=== PATIENT | female | born 1985 ===

== ENCOUNTER 2024-10-29 10:39 | Outpatient (CLI) | payer BC, SELFPAY ==
[2024-10-29 10:57] LABS: Hemoglobin 14.3 g/dL (12.0-15.0); Mean Corpuscular HGB Conc 33.3 g/dl (32-36); Mean Corpuscular Hemoglobin 29.9 pg (26-34); Mean Platelet Volume 8.6 fl (7.4-10.4); Platelet Count Result 308 k/mm3 (150-375); Red Blood Count 4.78 M/mm3 (4.2-5.4); Red Cell Distribution Width 12.1 % (11.5-14.5); White Blood Count 4.8 K/mm3 (4.5-10.0)
[2024-10-29 11:09] LABS: Alanine Aminotransferase 34 U/L (6-35); Albumin Level 4.5 g/dL (3.5-5.1); Alkaline Phosphatase 42 U/L (38-126); Anion Gap 7 mmol/L (4-12); Aspartate Amino Transferase 28 U/L (14-36); Bilirubin,Total 0.8 mg/dL (0.2-1.3); Blood Urea Nitrogen 13 mg/dL (7-17); Carbon Dioxide 28 mmol/L (22-30); Chloride 102 mmol/L (98-107); Cholesterol 277 mg/dL (0-200); Estimated Glomerular Filt Rate > 60; Glucose 99 mg/dL (65-110); HDL Direct 88 mg/dL; Potassium 4.5 mmol/L (3.4-5.0); Sodium 137 mmol/L (137-145); Triglycerides 87 mg/dL (<150)
--- OUTSIDE RECORDS SUMMARY | 2024-10-29 11:16 | XMS_ITS | Encounter Summary ---
Author Organization [facility] Address [address] [place] [address] Phone Care Team Providers Care Teradata Developer Name Role Phone Cherelle Redding APRN, REMOTE OPERATIONS PRODUCER Unavailable [phone] Vera Good APRN, REMOTE OPERATIONS PRODUCER Primary Care Provider Elvis Chappell DPM Unavailable Britt Thomas MD Unavailable [phone] Reason for Visit * Reason Comments Medication Refill Encounter Details Date Type Department Care Team (Late st Contact Info) Description 06/04/2020 Refill [facility] [address] [place] [address] Vera Good APRN, REMOTE OPERATIONS PRODUCER [address] [place] [address] Medication Refill Social History Tobacco Use Types Packs/Day Years Used Date Smoking Tobacco: Former Smokeless Tobacco: Never Comments:no vaping or e-ciga rettes Alcohol Use Standard Drinks/Week Comments Yes 2 (1 standard drink = 0.6 oz pur e alcohol) AUDIT-C Answer Date Recorded Frequency of Alcohol Consumption 2-3 times a wee k 01/01/2019 Average Number of Drinks 1 or 2 019 Frequency of Binge Drinking Less than monthly PHQ-2 Answer Date Recorded PHQ-2 Score 11 10/19/2019 Sexually Active Control Partners Comments Yes I.U.D. Male Comments No Sex and Gender Information Value Date Recorded Sex Assigned at Not on file Legal Sex Female 8:32 PM PREDATOR CONTROL TRAPPER Gender Identity Not on file Sexual Orientation Not on file documented as of this encounter Miscellaneous Notes * Telephone Encounter - Bety Kelly - 06/05/2020 11:37 AM CDT Pt no longer taking this medication documented in this encounter Plan of Treatment Not on file documented as of this encounter Visit Diagnoses Diagnosis Anxiety Anxiety state, unspecified Depression, unspecified depression type documented in this encounter Additional Health Concerns Infection Onset Date Last Indicated Resolved Time COVID - 19 07/29/2020 07/29/2020 08/18/2020 12:1 8 AM PREDATOR CONTROL TRAPPER COVID - 19 10/04/2020 10/04/2020 10/24/2020 12:1 8 AM PREDATOR CONTROL TRAPPER COVID - 19 07/13/2021 07/13/2021 08/02/2021 12:1 6 AM PREDATOR CONTROL TRAPPER COVID - 19 Confirmed 07/13/2021 07/13/2021 021 12:16 AM PREDATOR CONTROL TRAPPER COVID - 19 09/25/2022 09/25/2022 10/05/2022 12:1 6 AM PREDATOR CONTROL TRAPPER Assessment Noted Time PHQ-9 Depression Total Score: 11 020 2:14 PM PREDATOR CONTROL TRAPPER documented as of this encounter Care Teams Teradata Developer Relationship Specialty Start Date End Date Vera Good APRN, REMOTE OPERATIONS PRODUCER [address], [place] [address] PCP - General Certified Nurse Practitioner 11/15/19 Cherelle Redding APRN, REMOTE OPERATIONS PRODUCER Nurse Practitioner Obstetrics & Gynecology 10/25/19 Elvis Chappell DPM [address] [place] [address] Consulting Physician Podiatry 10/19/21 Britt Thomas MD [address] [place] [address] Consulting Physician Psychiatry 01/08/23 documented as of this encounter
--- OUTSIDE RECORDS SUMMARY | 2024-10-29 11:16 | XMS_ITS | Encounter Summary ---
Author Organization [facility] Address [address] [place] [address] Phone Care Team Providers Care Arts Education Teacher Name Role Phone Cherelle Redding APRN, VOCATIONAL INSTRUCTOR Unavailable [phone] Vera Good APRN, VOCATIONAL INSTRUCTOR Primary Care Provider Elvis Chappell DPM Unavailable Britt Thomas MD Unavailable [phone] Reason for Visit * Reason Comments Medication Refill Encounter Details Date Type Department Care Team (Late st Contact Info) Description 07/03/2020 Refill [facility] [address] [place] [address] Vera Good APRN, VOCATIONAL INSTRUCTOR [address] [place] [address] Medication Refill Social History Tobacco [...] on file Legal Sex Female 8:32 PM MANAGED SERVICES CONSULTANT Gender Identity Not on file Sexual Orientation Not on file documented as of this encounter Miscellaneous Notes * Telephone Encounter - Bety Kelly - 07/03/2020 2:23 PM CDT Requested Prescriptions Pending Prescriptions Disp Refills ??? Desvenlafaxine Succinate 50 MG TABLET SR 24 HR [Pharmacy Med Name: Desvenlafaxine Succinate ER Oral Tablet Extended Release 24 Hour 50 MG] 30 Tab 0 Sig: TAKE 1 TABLET BY MOUTH ONE TIME A DAY Unique:05/03/20 Last filled:05/03/20 Nov: 08/07/20 No results found for: SODIUM, POTASSIUM, CHLORIDE, CO2VEN, ANIONGAP, GLUCOSE, BUN, CREATININE, BCRATIO8, TOTALPROTEIN, ALBUMIN, AGRATIO, CALCIUM, TBIL, SGOTAST, SGPTALT, ALKALINEPHO, GFRNA, GFRA documented in this encounter Plan of Treatment Not on file documented as of this encounter Visit Diagnoses Diagnosis Anxiety Anxiety state, unspecified Depression, unspecified depression type documented in this encounter Additional Health Concerns Infection Onset Date Last Indicated Resolved Time COVID - 19 07/29/2020 07/29/2020 08/18/2020 12:1 8 AM MANAGED SERVICES CONSULTANT COVID - 19 10/04/2020 10/04/2020 10/24/2020 12:1 8 AM MANAGED SERVICES CONSULTANT COVID - 19 07/13/2021 07/13/2021 08/02/2021 12:1 6 AM MANAGED SERVICES CONSULTANT COVID - 19 Confirmed 07/13/2021 07/13/2021 021 12:16 AM MANAGED SERVICES CONSULTANT COVID - 19 09/25/2022 09/25/2022 10/05/2022 12:1 6 AM MANAGED SERVICES CONSULTANT Assessment Noted Time PHQ-9 Depression Total Score: 11 020 2:14 PM MANAGED SERVICES CONSULTANT documented as of this encounter Care Teams Arts Education Teacher Relationship Specialty Start Date End Date Vera Good, MAILS SUPERVISOR, VOCATIONAL INSTRUCTOR [address] [place] [address] PCP - General Certified Nurse Practitioner 11/15/19 Cherelle Redding APRN, VOCATIONAL INSTRUCTOR Nurse Practitioner Obstetrics & Gynecology 10/25/19 Elvis Chappell DPM [address] [place] [address] Consulting Physician Podiatry 10/19/21 Britt Thomas MD [address] [place] [address] Consulting Physician Psychiatry 01/08/23 documented as of this encounter
--- OUTSIDE RECORDS SUMMARY | 2024-10-29 11:16 | XMS_ITS | Clinical Summary ---
Author Organization [facility] Address [address] [place] [address] Phone Care Team Providers Care House Painting Instructor Name Role Phone Cherelle Redding APRN, GUM REMOVER Unavailable [phone] Vera Good APRN, GUM REMOVER Primary Care Provider Elvis Chappell DPGavino Unavailable Britt Thomas MD Unavailable [phone] Allergies Active Allergy Reactions Criticality Noted Date Comments Amoxicillin Unknown Low 10/14/2018 Reports medication does not work Medications spironolactone (ALDACTONE) 50 MG TabletIndication s:Water retention TAKE 1 TABLET BY MOUTH EVERY DAY 90 Tablet 2 Active Additional Information Patient not taking.Reported on 04/01/2024 ibuprofen (MOTRIN) 800 MG TabletIndication s:Acute non-recurrent sinusitis, unspecified location Take 1 Tablet by mouth every 8 hours as needed for Moderate or more severe pain. 60 Tablet 3 2 Active fluticasone (FLONASE) 50 MCG/ACT SuspensionIndica tions:Fluid level behind tympanic membrane of both ears 1-2 Sprays by Nasal route daily. Use in each nostril as directed. 16 g 3 Active Additional Information Patient not taking.Reported on 04/01/2024 Multiple Vitamins-Mineral s (MULTI-VITAMIN/M INERALS PO) Multi Vitamin/Mineral s Active Oral Electrolytes (ADVANTAGE CARE ELECTROLYTE PED PO) Take 3 Drops by mouth daily. Active Magnesium 100 MG Capsule Take 1 Tablet by mouth daily. Active Cholecalciferol (Vitamin D) 2000 UNIT Tablet Take 1 Tablet by mouth daily. Active Probiotic Product (Probiotic Acidophilus Beads) Capsule Take 1 Capsule by mouth daily. Active azelastine (ASTELIN) 0.1 % SolutionIndicati ons:Acute non-recurrent frontal sinusitis 2 Sprays by Nasal route 2 times daily. Use in each nostril as directed 30 mL 4 Active Additional Information Patient not taking.Reported on 04/01/2024 busPIRone HCl (BUSPAR) 30 MG Tablet Take 1 Tablet by mouth every evening. 90 Tablet 5 Active lamoTRIgine (LaMICtal) 200 MG Tablet Take 1 Tablet by mouth daily. 90 Tablet 5 Active clonazePAM (KlonoPIN) 1 MG TabletIndication s:Anxiety Take 1 Tablet by mouth 3 times daily as needed for Anxiety. 90 Tablet 2 5 Active Active Problems Problem Noted Date Diagnosed Date Bipolar 1 disorder 01/02/2023 ALEX (generalized anxiety disorder) 01/02/2023 MDD (major depressive disorder) 01/02/2023 Vaginal discharge 03/27/2021 Vaginal itching 03/27/2021 BMI 29.0-29.9,adult 03/14/2021 Complex cyst of left ovary 02/12/2021 Ovarian cyst, right 02/12/2021 Contraceptive, surveillance, intrauterine device 02/12/2021 Dysuria 10/06/2020 Kidney stone 10/06/2020 Personal history of urinary calculi 10/04/2020 Flank pain 10/04/2020 Urge urinary incontinence 10/04/2020 Urinary frequency 10/04/2020 Overactive bladder 10/04/2020 Mixed incontinence 10/04/2020 Right lower quadrant pain 04/17/2020 IUD (intrauterine device) in place 04/17/2020 Rupture of cyst of right ovary 03/13/2020 Menometrorrhagia 03/13/2020 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 Shortness of breath 05/26/2018 Irregular menses 09/26/2016 Endometriosis 09/25/2016 Arthralgia Overview (12/07/2018): KNEE PAIN- PATELLA/TIBA/FIBULA RIGHT Thyroid function test abnormal Overview (12/07/2018): NONSPECIFIC ABNORMAL FINDINGS Dysmenorrhea Pelvic pain Encounters Date Type Department Care Team Description 09/18/2024 MyChart RX Renewal [facility] [place] [address] [place] [address] Britt Thomas MD Medication Renewal Reviewed from Last 3 Months Family History Medical History Relation Name Comments No Known Problems Brother 1 Marino No Known Problems Brother 2 magdaleno No Known Problems Daughter 1 No Known Problems Daughter 2 Diabetes Father alcohol related Other-comment Maternal Grandmother medica tion use No Known Problems Mother No Known Problems Other spouse Diabetes Paternal Grandfather Heart Attack Paternal Grandfather Diabetes Paternal Grandmother Heart Attack Paternal Grandmother No Known Problems Son Relation Name Status Comments Brother 1 Marino Alive Brother 2 magdaleno Alive Daughter 1 Alive Daughter 2 Alive Father Alive Maternal Grandfather Maternal Grandmother Mother Alive Other spouse Alive Paternal Grandfather Alive Paternal Grandmother Alive Son Alive Social History Tobacco Use Types Packs/Day Years Used Date Smoking Tobacco: Former Smokeless Tobacco: Never Tobacco Cessation:Counseling Given: Not Answered Alcohol Use Standard Drinks/Week Comments Yes 2 (1 standard drink = 0.6 oz pur e alcohol) AUDIT-C Answer Date Recorded Frequency of Alcohol Consumption 2-3 times a wee k 01/01/2019 Average Number of Drinks 1 or 2 019 Frequency of Binge Drinking Less than monthly PHQ-2 Answer Date Recorded Total Score - Questions 1-9 0 09/08 Sexually Active Control Partners Comments Yes I.U.D. Male Comments No Sex and Gender Information Value Date Recorded Sex Assigned at Not on file Legal Sex Female 8:32 PM ETHOLOGIST Gender Identity Not on file Sexual Orientation Not on file Last Filed Vital Signs Vital Sign Reading Time Taken Comments Blood Pressure 118/88 07/27/2024 8:59 AM ETHOLOGIST Pulse 81 07/27/2024 8:59 AM ETHOLOGIST Temperature 36.8 C (98.3 F) 07/27/2024 8:59 AM ETHOLOGIST Respiratory Rate 18 07/27/2024 8:59 AM ETHOLOGIST Oxygen Saturation 97% 07/27/2024 8:59 AM ETHOLOGIST Inhaled Oxygen Concentration - - Weight 63.5 kg (140 lb) 07/27/2024 8:59 AM ETHOLOGIST Height 156.2 cm (5' 1.5 ) 07/27/2024 8:59 AM ETHOLOGIST Body Mass Index 26.02 07/27/2024 8:59 AM ETHOLOGIST Plan of Treatment Health Maintenance Due Date Last Done Comments Hepatitis C Virus (HCV) Screening 1987 TdaP Immunization 1987 Hepatitis B Immunization (1 of 3 - 19+ 3-dose series) 12/14/2006 HPV/Cotest 12/14/2017 Cervical Cancer Screening (CCS) 11/15/2022 Pap Smear 11/15/2022 11/16/2019, 10/03/2017, 08/08/2011 Respiratory Syncytial Virus (RSV) Immunization (Adult) (1 - 1-dose 75+ series) 12/14/2062 Influenza Immunization Discontinued Meningococcal Immunization (ACWY) Aged Out No longer eligible based on patient's age to complete this topic Pneumococcal Immunization Combined Aged Out No longer eligible based on patient's age to complete this topic Rotavirus Immunization Aged Out No lo nger eligible based on patient's age to complete this topic Procedures Procedure Name Priority Date/Time Associated Diagnosis Comments PATHOLOGY CYTOLOGY WIRELESS RETAIL MANAGER Routine 11/16/2019 12:44 PM CDT Screening for malignant neoplasm of cervix from Last 3 Months or Most Recently Relevant to Health Maintenance Results * PATHOLOGY CYTOLOGY WIRELESS RETAIL MANAGER (11/16/2019 12:44 PM CDT) SPECIMEN ADEQUACY Satisfactory for evaluation. Endocervical/transf ormation zone component is absent. 11/23/2019 1:18 PM CDT [facility] DESCRIPTIVE DIAGNOSIS NEGATIVE FOR INTRAEPITHELIAL LESIONS OR MALIGNANCY. 11/23/2019 1:18 PM CDT [facility] MATED EXAMINATION Analysis of this sample has been assisted by an automated imaging and review system ([employer] Imaging System, [employer], [place], [place]). This case is further evaluated and finalized by a deboner and/or pathologist. 11/23/2019 1:18 PM CDT [facility] DISCLAIMER The PAP smear is a screening test designed to detect cancerous or precancerous cells of the uterine cervix. It is one of the best means available for detection of cervical cancer but still carries an inherent false-negative rate. The consequences of a false-negative PAP result can be minimized by adhering to current screening guidelines. The following are general guidelines recommended by the ACS, ASCP, ASCCP, and ACOG: PAP testing is recommended every three years for women 21-29, Co-Testing , a PAP test in conjunction with an HPV (Human Papillomavirus) test for women ages 30-65, and no PAP or HPV testing for women under the age of 21 or older than 65 unless clinically indicated. 11/23/2019 1:18 PM CDT [facility] Case Report Gynecologic Cytology Report Case: [id number] Authorizing Provider: Cherelle Redding APN, Collected: 11/16/2019 12:44 PM YING Ordering Location: [facility] Received: 11/16/2019 12:44 PM [facility] - OBSTETRICS & GYNECOLOGY [facility] First Screen: Rose Ibrahim Rescreen: Tyrone Palumbo Specimen: TP Screen, CERVIX/ENDOCERVIX 11/23/2019 1:18 PM CDT [facility] HPV Reflex if ASCUS? Yes 11/23/2019 1:18 PM CDT [facility] Specimen of unknown material (specimen) CERVIX UTERI STRUCTURE / Unknown Non-Phlebotomy Collection / Unknown 11/16/2019 12:44 PM CDT 11/16/2019 12:44 PM CDT us Cherelle Redding APRN, GUM REMOVER PATHOLOGY/CYTOLOGY ORDERABLES Final Result [facility] [address] [place] [address], from Last 3 Months or Most Recently Relevant to Health Maintenance Insurance [facility] Care Teams House Painting Instructor Relationship Specialty Start Date End Date Vera Good APRN, GUM REMOVER [address] [place] [address] PCP - General Certified Nurse Practitioner 11/15/19 Cherelle Redding APRN, GUM REMOVER Nurse Practitioner Obstetrics & Gynecology 10/25/19 Elvis Chappell DPM [address] [place] [address] Consulting Physician Podiatry 10/19/21 Britt Thomas MD [address] [place] [address] Consulting Physician Psychiatry 01/08/23
--- OUTSIDE RECORDS SUMMARY | 2024-10-29 11:16 | XMS_ITS | Encounter Summary ---
Author Organization [facility] Address [address] [place] [address] Phone Care Team Providers Care Refrigerated Cargo Clerk Name Role Phone Cherelle Redding APRN, FORM TAMPING MACHINE OPERATOR Unavailable [phone] Vera Good APRN, FORM TAMPING MACHINE OPERATOR Primary Care Provider Elvis Chappell DPM Unavailable Britt Thomas MD Unavailable [phone] Reason for Visit * Reason Comments Medication Refill Encounter Details Date Type Department Care Team (Late st Contact Info) Description 01/16/2024 Refill [facility] [address] [place] [id number] Britt Thomas MD [address] [place] [address] Medication Refill Social History Tobacco Use Types Packs/Day Years Used Date Smoking Tobacco: Former Smokeless Tobacco: Never Alcohol Use Standard Drinks/Week Comments Yes 2 [...] on file Legal Sex Female 8:32 PM LINEMAN APPRENTICE Gender Identity Not on file Sexual Orientation Not on file documented as of this encounter Miscellaneous Notes * Telephone Encounter - Francheska Lucio RN - 01/16/2024 10:02 AM CDT Routed to correct department documented in this encounter Plan of Treatment Not on file documented as of this encounter Visit Diagnoses Not on filedocumented in this encounter Additional Health Concerns Assessment Noted Time PHQ-9 Depression Total Score: 0 09/20/19 23 1:00 PM LINEMAN APPRENTICE documented as of this encounter Care Teams Refrigerated Cargo Clerk Relationship Specialty Start Date End Date Vera Good APRN, FORM TAMPING MACHINE OPERATOR [address] [place], [place] [address] PCP - General Certified Nurse Practitioner 11/15/19 Cherelle Redding APRN, FORM TAMPING MACHINE OPERATOR Nurse Practitioner Obstetrics & Gynecology 10/25/19 Elvis Chappell DPM [address] [place], [place] [address] Consulting Physician Podiatry 10/19/21 Britt Thomas MD [address] [place], [place] [address] Consulting Physician Psychiatry 01/08/23 documented as of this encounter
--- OUTSIDE RECORDS SUMMARY | 2024-10-29 11:16 | XMS_ITS | Encounter Summary ---
Author Organization [facility] Address [address] [place] [address] Phone Care Team Providers Care Public Relations Writer Name Role Phone Cherelle Redding APRN, FILTER WORKER Unavailable [phone] Vera Good APRN, FILTER WORKER Primary Care Provider Elvis Chappell DPGavino Unavailable Britt Thomas MD Unavailable [phone] Reason for Visit * Reason Comments Medication Refill Encounter Details Date Type Department Care Team (Late st Contact Info) Description 03/25/2022 Refill [facility] [address] [place] [address] Vera Good APRN, FILTER WORKER [address] [place] [address] Medication Refill Social History Tobacco [...] Date Recorded Total Score - Questions 1-9 8 09/08 Sexually Active Control Partners Comments Yes I.U.D. Male Comments No Sex and Gender Information Value Date Recorded Sex Assigned at Not on file Legal Sex Female 8:32 PM AVIATION ENGINEER Gender Identity Not on file Sexual Orientation Not on file documented as of this encounter Plan of Treatment Not on file documented as of this encounter Visit Diagnoses Diagnosis Water retention Other fluid overload documented in this encounter Additional Health Concerns Infection Onset Date Last Indicated Resolved Time COVID - 19 09/25/2022 09/25/2022 10/05/2022 12:1 6 AM AVIATION ENGINEER Assessment Noted Time PHQ-9 Depression Total Score: 8 09/21/19 21 9:13 AM AVIATION ENGINEER documented as of this encounter Care Teams Public Relations Writer Relationship Specialty Start Date End Date Vera Good APRN, FILTER WORKER [address] [place], [place] [address] PCP - General Certified Nurse Practitioner 11/15/19 Cherelle Redding APRN, FILTER WORKER Nurse Practitioner Obstetrics & Gynecology 10/25/19 Elvis Chappell DPM [address] [place], [place] [address] Consulting Physician Podiatry 10/19/21 Britt Thomas MD [address] [place], [place] [address] Consulting Physician Psychiatry 01/08/23 documented as of this encounter
--- OUTSIDE RECORDS SUMMARY | 2024-10-29 11:16 | XMS_ITS | Encounter Summary ---
Author Organization [facility] Address [address] [place] [place] [address] Phone Care Team Providers Care Linen Supply Load Builder Name Role Phone Cherelle Redding APRN, FLOOR HAND Unavailable [phone] Vera Good APRN, FLOOR HAND Primary Care Provider Elvis Chappell DPGavino Unavailable Britt Thomas MD Unavailable [phone] Reason for Visit * Reason Comments Medication Refill Encounter Details Date Type Department Care Team (Late st Contact Info) Description 03/19/2021 Refill [facility] [address] [place] [address] Vera Good APRN, FLOOR HAND [address] [place] [address] Medication Refill Social History Tobacco [...] on file Legal Sex Female 8:32 PM OPERATING ROOM ASSISTANT Gender Identity Not on file Sexual Orientation Not on file COVID-19 Exposure Response Date Recorded In the last month, have you been in contact with someone who was confirmed or suspected to have Coronavirus / COVID-19? No / Unsure 03/08/2021 9:46 AM CDT documented as of this encounter Miscellaneous Notes * Telephone Encounter - Mahogany Kessler RN - 03/20/2021 8:51 AM CDT Last refill: 12/12/20 90 tabs 0 refills BONI: 12/11/20 NOV: none seen Labs: 12/12/20 documented in this encounter Plan of Treatment Not on file documented as of this encounter Visit Diagnoses Diagnosis Depression, unspecified depression type documented in this encounter Additional Health Concerns Infection Onset Date Last Indicated Resolved Time COVID - 19 07/13/2021 07/13/2021 08/02/2021 12:1 6 AM OPERATING ROOM ASSISTANT COVID - 19 Confirmed 07/13/2021 07/13/2021 021 12:16 AM OPERATING ROOM ASSISTANT COVID - 19 09/25/2022 09/25/2022 10/05/2022 12:1 6 AM OPERATING ROOM ASSISTANT Assessment Noted Time PHQ-9 Depression Total Score: 8 09/21/19 21 9:13 AM OPERATING ROOM ASSISTANT documented as of this encounter Care Teams Linen Supply Load Builder Relationship Specialty Start Date End Date Vera Good APRN, FLOOR HAND [address] [place] [address] PCP - General Certified Nurse Practitioner 11/15/19 Cherelle Redding APRN, FLOOR HAND Nurse Practitioner Obstetrics & Gynecology 10/25/19 Elvis Chappell DPM [address] [place], [place] [address] Consulting Physician Podiatry 10/19/21 Britt Thomas MD [address] [place] [address] Consulting Physician Psychiatry 01/08/23 documented as of this encounter
--- OUTSIDE RECORDS SUMMARY | 2024-10-29 11:16 | XMS_ITS | Continuity of Care Document ---
Author Organization [facility], [facility] Address [address] [place] [address] Phone Care Team Providers Care Plan Consultant Name Role Phone Chastity Taveras OD Unavailable Unavailable Allergies, Adverse Reactions, Alerts Substance Reaction Status Criticality No Known Allergies Active No Inform ation Medications Medication Instructions Dosage Effective Dates (start - stop) Status Comments triamcinolone acetonide 0.025 % topical cream apply to BUL 2- 3 times per day for no longer than 10 days - Active bupropion HCl XL 150 mg 24 hr tablet, extended release take 1 tablet by oral route every day 150 MG - Active ibuprofen 800 mg tablet take 1 tablet by oral route PRN as needed - Active lorazepam 1 mg tablet take 1 tablet by oral route 3 times every day as needed as needed 1 MG - Active MAGNESIUM (unknown strength) Not Available - Active Multiple Vitamins tablet take 1 tablet by oral route every day with food - Active Mirena 20 mcg/24 hours (7 yrs) 52 mg intrauterine device - Active Probiotic 10 billion cell capsule - Active spironolactone 50 mg tablet take 1 tablet by oral route every day 50 MG - Active Procedures Procedure Date REFRACTION EYE EXAM ESTABLISHED PATIENT EYE EXAM NEW PATIENT Eye Hydration Compress Mask Advance Directives Directive Yes / No Effective Date File Name No Information Encounters Encounter Description Practice Location Reason(s) For Visit Diagnoses Date Provider Providers Copied on Encounter [facility], [address] [place] [address], [id number], tel:[phone] [facility] No Information 2 Nitin Haywood . [address] [place] [address], [id number] , . tel: [phone] [facility], [address] [place] [address], [id number], tel:[phone] [facility] Decreased vision (chief complaint) Hypermetropia, bilateralRegular astigmatism, bilateralIrritant contact dermatitis, unspecified cause 2 Nitin Haywood . [address] [place] [address], [id number] , . tel:[phone] Referring Provider: Chastity Anaya, [address] [place] [address], [id number] . tel:[phone] [facility], [address] [place] [address], [id number], tel:[phone] [facility] itching (chief complaint) Irritant contact dermatitis, unspecified cause 2 Nitineriberto HallChastity . [address] [place] [address], [id number] , . tel: [phone] Referring Provider: Chastity Anaya, [address] [place] [address], [id number] . tel:[phone] Family History Family Member Type Diagnosis Age At Onset Problem No family history of Macular degeneration Father Problem Diabetes mellitus Problem No family history of Hyperte nsion Problem No family history of Catarac ts Maternal grandfather Problem Glaucoma Payers Payer name Insurance type Covered democrat ID Authoriza tion(s) No Information Social History Type Description Quantity Date Captured Comments Sex Female Smoking Status No Information Chief Complaint And Reason For Visit No Information Reason For Referral Reason For Referral No Information History Of Present Illness Encounter Date Complaint History Of Prese nt Illness Decreased vision The 36 year old patient presents for evaluation of Decreased vision in the left > right. Pt has glasses from last year elsewhere that do not seem to help. Pt struggles with night time driving/glare and seeing at a distance. Pt has two pairs of glasses. The clear pair she bought for her car but does not have an AR coating. (Optical does not see AR coating in either pr) Also sees shadowing with glasses. Pt states she often has headaches and does wake up with them. Pt states her lids cleared up from Contact dermatitis but started having symptoms on YOLANDE again so started ointment again. Takes Pataday daily PRN Patient denies: trauma. itching The 36 year old patient presents for evaluation of itching and irritation of the left upper lid for the last 3 days. Patient first noted itching and a sticky sensation in the nasal corner of the left eye. She felt eyelid was a little swollen this morning when she woke. She has tried Pataday and oral allergy meds, which helped some with the itching but eye still feels sticky in the corners. She has tried warm compresses with no improvement. She is not noticing any mattering or discharge. The eye itself is not red and vision is not affected. Right eye had mild symptoms but not as much as the left. Functional Status Date Functional Assessmen t No Information Instructions Date Instruction Additional Infor cordell Impression/Plan Impression/Plan Assessments Type Assessment Date No Information Patient Care Teams Name Effective Dates (start - stop) Status Members No Information
[2024-10-29 11:21] LABS: LDL Cholesterol Direct 143 mg/dL
[2024-10-29 11:38] LABS: Thyroid Stimulating Hormone 0.877 uIU/mL (0.465-4.680)
[2024-10-29 18:13] LABS: Vitamin B12 > 1000.0 pg/mL (239-931)
== END 2024-10-29 10:40 | disposition home or self-care (01) ==
LOC: ANHLAB 10:43
PROVIDERS: PCP Nurse Practitioner Family; Visit Provider Nurse Practitioner Family
DX: Z13.220 Encounter for screening for lipoid disorders (principal); N92.6 Irregular menstruation, unspecified; F41.9 Anxiety disorder, unspecified; F31.9 Bipolar disorder, unspecified; Z87.42 Personal history of other diseases of the female genital tract
CPT/HCPCS: 36415; 80053; 80061; 82607; 84443; 85027